=== PATIENT | female | born 1990 | race Caucasian/White ===

== ENCOUNTER 2019-08-16 08:41 | Outpatient (CLI) | payer OTHER, SELFPAY ==
--- NOTE | ~2019-08-16 | US_ITS ---
EXAMINATION: US pelvic complete w TV DATE: 08/16/2019 09:19 INDICATION: Pelvic and perineal pain Comparison:No prior studies for comparison. TECHNIQUE: Multiple transabdominal and endovaginal sonographic images of the pelvis performed. FINDINGS: The uterus measures 9.6 x 4.5 x 6 cm. There are nabothian cysts. The endometrial complex me asures 8 mm. The right ovary measures 4.8 x 2.6 x 2.1 cm and the left ovary measures 2.9 x 1.3 x 2.3 cm. There is a 2.5 cm right ovarian cyst. There is no free fluid in the pelvis. There are no abnormal masses seen on either side. IMPRESSION: 1. 2.5 cm right ovarian cyst. Reviewed, dictated and finalized at location A.
== END 2019-08-16 08:42 | disposition home or self-care (01) ==
PROVIDERS: PCP Family Medicine; Visit Provider Family Medicine
DX: R10.2 Pelvic and perineal pain (principal)
CPT/HCPCS: 76830; 76856

== ENCOUNTER 2019-09-11 11:51 | Outpatient (CLI) | payer OTHER, SELFPAY ==
--- NOTE | ~2019-09-11 | XR_ITS ---
EXAMINATION: XR thoracic spine 3V DATE: 09/11/2019 12:23 INDICATION: Thoracic back pain. TECHNIQUE: 3 views of thoracic spine were obtained. COMPARISON: None. FINDINGS: There is 7 degrees levocurvature of cervicothoracic spine. Vertebral body heights and inter vertebral disc heights are normal. Surgical clips in the right upper quadrant are likely from cholecy stectomy. IMPRESSION: 1. Cervicothoracic levocurvature. Reviewed, dictated and finalized at location A.
--- NOTE | ~2019-09-11 | XR_ITS ---
EXAMINATION: XR lumbar spine 2-3V DATE: 09/11/2019 12:23 INDICATION: Low back pain. TECHNIQUE: 3 views of lumbar spine were obtained. COMPARISON: Lumbar spine radiographs 06/04/2011 FINDINGS: There is 4 degrees dextrocurvature of lumbar spine. Vertebral body heights and intervertebr al disc heights are normal. Surgical clips in the right upper quadrant are likely from cholecystectom y. IMPRESSION: 1. No etiology for the patient's symptoms. Reviewed, dictated and finalized at location A.
== END 2019-09-11 11:52 | disposition home or self-care (01) ==
PROVIDERS: PCP Family Medicine; Visit Provider Family Medicine
DX: M54.5 Low back pain (principal); M54.6 Pain in thoracic spine
CPT/HCPCS: 72072; 72100

== ENCOUNTER 2019-09-13 14:33 | Outpatient (RCR) | payer OTHER, SELFPAY ==
--- NOTE | 2019-09-19 13:24 | PCPTNOTE ---
09/19/19-pt continues to be late for all of her appointments by about 30 min. pt called at approximately 1305 today to say she was running late, but that she was literally pulling into the parking lot at that time. At approximately 1320 pt was finally seen pulling into the parking lot. pt then got out of her car, walked half way to the building, then turned around and got back into her car and called back to cancel. pt stated her prescription was still not ready and she was waiting on that so she wanted to reschedule because she was in too much pain to come without it. -
--- NOTE | 2019-09-20 14:52 | PTOPEVAL ---
Thank you for referring Yovana Berkowitz to [facility]. Please review, sign, date and return this plan of care AMAN. I agree with and certify that the following plan of care is medically necessary. Referring Physician Date Admitting Provider: Attending Provider: Oscar Mejía MD Referring Provider: *PT Outpatient Evaluation Start: 09/13/19 14:35 Freq: Status: Active Protocol: Document 09/13/19 14:35 JTF (Rec: 09/13/19 15:22 JTF [id number]) Therapy Assessment Status Assessment Status Assessment Status Evaluation Evaluation Information Problem Diagnosis low back pain, thoracic back pain Onset 09/11/19 Subjective Information patient reports she has been Query Text:As Reported By Patient/ having pain in the whole Family spine. she reports she has been having increased pain for about 1 week. she reports she has been unable to move or walk without any pain since this past wednesday. she reports her spine was knicked during epidural of the of the her youngest child. she reports no injury recently . she reports she feels she has a knot in her spine. she reports she works in the [employer] at [place]. she reports she has been off work for a week. she reports she has no return to work date yet . she reports she has had an x -ray of the spine. Prior Level of Function Comments Additional Prior Level of Function patient reports pain currently Comments with any activities and all movements she reports prior to last wednesday, no issues Pain Assessment Timing of Pain Assessment Timing of Pain Assessment Assessment Pain Scale Pain Scale Used Numeric (1 - 10) Self Report Pain Assessment Lower Back Reported Pain Level 10 Pain Score Pain Score 10: Self Report Cervical and Lumbar ROM Lumbar ROM Lumbar Flexion Active [place] Query Text:Hands to: Lumbar Extension (0-40) 0 Query Text:Active in Degrees Lumbar Lateral Flexion Right (0-40) 10 Query Text:Active in Degrees Lumbar Lateral Flexion Left (0-40)
--- NOTE | 2019-10-03 17:56 | PCPTNOTE ---
10/03/19- pt was scheduled for a 1600 appointment today and was a no call no show. -.
--- NOTE | 2019-12-05 16:13 | PCPTNOTE ---
12/05/19 - patient has not been to therapy in several months. as of this date, patient will be DC'd from skilled PT services, and all progress towards goals will be taken from patients most recent evaluation/note. BALJINDER
== END 2019-09-29 09:35 | disposition home or self-care (01) ==
LOC: CHSPT 14:33
PROVIDERS: PCP Family Medicine; Visit Provider Family Medicine
DX: M54.5 Low back pain (principal); M54.6 Pain in thoracic spine
CPT/HCPCS: 97012; 97014; 97110; 97140; 97162; G0283

== ENCOUNTER 2019-11-18 07:54 | Outpatient (CLI) | payer OTHER, SELFPAY ==
--- NOTE | ~2019-11-18 | MR_ITS ---
EXAMINATION: MR lumbar spine wo con EXAM DATE: 11/18/2019 08:33 INDICATION: Pain radiating and low back down into right hip and leg with numbness in the thigh and fo ot. States onset since lifting injury in August. TECHNIQUE: Multi-sequential, multiplanar MR images of the lumbar spine were obtained without contrast . Sagittal T1, T2, T2 fat saturation images. Axial T2 weighted images. There is no prior study for comparison. FINDINGS: The vertebral bodies are aligned in the AP dimension. Vertebral body and disc heights are w ell-maintained. There are no suspicious marrow signal abnormalities. Paraspinal soft tissue is unrema rkable. The conus medullaris terminates at the L1/2 level and has normal signal intensity and morphol ogy. Level by level evaluation: T12-L1: Disc does not extend beyond the endplate margin. Facet arthropathy: None. Neural foraminal stenosis: No stenosis. Central canal stenosis: No stenosis. L1-L2: Disc does not extend beyond the endplate margin. Facet arthropathy: None. Neural foraminal stenosis: No stenosis. Central canal stenosis: No stenosis. L2-L3: Disc does not extend beyond the endplate margin. Facet arthropathy: None. Neural foraminal stenosis: No stenosis. Central canal stenosis: No stenosis. L3-L4: Disc does not extend beyond the endplate margin. Facet arthropathy: Mild. Neural foraminal stenosis: No stenosis. Central canal stenosis: No stenosis. L4-L5: There is a mild diffuse disc bulge. Facet arthropathy: Mild. Neural foraminal stenosis: No stenosis. Central canal stenosis: No stenosis. L5-S1: There is a minimal diffuse disc bulge. Facet arthropathy: Minimal. Neural foraminal stenosis: No stenosis. Central canal stenosis: No stenosis. IMPRESSION: 1. Mild lumbar facet arthropathy. No stenosis. Reviewed, dictated and finalized at location A.
== END 2019-11-18 07:55 | disposition home or self-care (01) ==
LOC: CHSIMG 07:55
PROVIDERS: PCP Family Medicine; Visit Provider Family Medicine
DX: M54.5 Low back pain (principal)
CPT/HCPCS: 72148

== ENCOUNTER 2020-02-28 15:05 | Outpatient (CLI) | payer OTHER, SELFPAY ==
[2020-02-28 16:04] LABS: Influenza Control Valid (Valid)
[2020-02-28 16:05] LABS: SARS-CoV-2 Ag Negative (Negative)
== END 2020-02-28 15:06 | disposition home or self-care (01) ==
LOC: CHSLAB 15:06
PROVIDERS: PCP Family Medicine; Visit Provider Family Medicine
DX: R05 Cough (principal); Z20.828 Contact with and (suspected) exposure to other viral communicable diseases
CPT/HCPCS: 87081; 87426; 87804; 87880

== ENCOUNTER 2020-03-22 14:27 | Outpatient (CLI) | payer OTHER, SELFPAY ==
[2020-03-22 14:53] LABS: SARS-CoV-2 Ag Negative (Negative)
== END 2020-03-22 14:28 | disposition home or self-care (01) ==
LOC: CHSLAB 14:30
PROVIDERS: PCP Family Medicine; Visit Provider Family Medicine
DX: J00 Acute nasopharyngitis [common cold] (principal); J06.9 Acute upper respiratory infection, unspecified; Z20.828 Contact with and (suspected) exposure to other viral communicable diseases
CPT/HCPCS: 87426

== ENCOUNTER 2020-05-20 18:30 | Outpatient (CLI) | payer OTHER, SELFPAY ==
[2020-05-20 20:02] LABS: SARS-CoV-2 Ag Negative (Negative)
== END 2020-05-20 18:31 | disposition home or self-care (01) ==
LOC: CHSLAB 18:32
PROVIDERS: PCP Family Medicine; Visit Provider Family Medicine
DX: R11.2 Nausea with vomiting, unspecified (principal); Z20.822 Contact with and (suspected) exposure to COVID-19
CPT/HCPCS: 87426; C9803

== ENCOUNTER 2021-01-30 13:46 | Outpatient (CLI) | payer OTHER, SELFPAY ==
[2021-01-30 15:34] LABS: Influenza A QL RT-PCR Negative (Negative); Influenza B QL RT-PCR Negative (Negative); SARS-CoV-2 RNA PCR Negative (Negative)
== END 2021-01-30 13:47 | disposition home or self-care (01) ==
LOC: CHSLAB 13:50
PROVIDERS: PCP Family Medicine; Visit Provider Family Medicine
DX: J00 Acute nasopharyngitis [common cold] (principal)
CPT/HCPCS: 87502; C9803; U0003; U0005

== ENCOUNTER 2023-02-13 17:03 | Emergency (ER) | payer OTHER, SELFPAY ==
[2023-02-13 17:05] VITALS: BP 127/55; PULSE 106; RESP 20; O2SAT 100
--- NOTE | 2023-02-13 17:14 | ED.DENTAL ---
HPI - Dental/Oral General Chief complaint: Dental/Oral Stated complaint: toothache Source: patient and family Mode of arrival: ambulatory Limitations: no limitations History of Present Illness HPI Narrative: this is a 32-year-old female that presents with dental pain right lower molar with surrounding gum inflammation with some jaw swelling and right submandibular gland tenderness with no shortness of breath no fever chills no nausea vomiting. MD Complaint: tooth pain Teeth map: 1. Dental pain with surrounding gum inflammation Onset (ago): day(s) Severity scale (1-10): 8 Relieving factors: NSAIDs Exacerbating factors: chewing, cold, drinking fluids and swallowing Context: history of dental caries Associated symptoms: gum swelling Treatment prior to arrival: oral analgesic Related Data Allergies Allergy/AdvReac Type Severity Reaction Status Date / Time No Known Allergies Allergy Unverified 10/10/11 22:53 Review of Systems Review of Systems: All systems reviewed & are unremarkable except as noted in HPI and below PMFSH Past Medical History Medical History Patient denies medical problems Exam Const: General: healthy appearing Nutritional Appearance: well nourished Orientation/consciousness: patient oriented x3 Limitations: no limitations HENMT: Head: normal to inspection Other: lower right jaw swelling, with lower right molar dental pain with surrounding gum inflammation Chest: Chest palpation & inspection: normal inspection of the chest Resp: Effort & Inspection: normal respiratory effort Auscultation: clear to auscultation bilaterally Cardio: Rate: regular rate Rhythm: regular rhythm GI: GI Palp: Yes Soft to palpation Skin: General skin exam: normal color Rashes: no rashes Neuro: General: patient oriented x3 and moves all extremities Psych: Mental Status: mental status grossly normal Affect: normal affect Course Course Emergency Course: patient with dental rates her pain about 8/10 has tried [id number] ibuprofen with minimal relief, patient received a dose of 60mg IM Toradol and a dose of p.o. amoxicillin. Critical Care Time Critical Care Time Critical Care Time: No Discharge Plan Discharge Clinical Impression: Dental abscess Patient Disposition: Home, Self-Care Condition: Stable Instructions: Antibiotic Form, Dental Abscess (ED) Additional Instructions: advised take medication as prescribed and follow-up with primary care physician /Dentist if symptoms persist or worsen. Prescriptions: New naproxen 500 mg tablet 500 mg PO BID PRN (Reason: pain) Qty: 14 0RF amoxicillin 500 mg tablet 500 mg PO TID Qty: 30 0RF Follow-up/Referrals: Oscar Mejía MD [Primary Care Provider] - Stand Alone Forms: Work/School Release IP Time of Disposition: 17:20
[2023-02-13 17:19] VITALS: TEMP 36.4
[2023-02-13] MEDS: KETOROLAC (*BKC) 60 MG/2 ML VIAL IM (17:25)
[2023-02-13] MEDS: AMOXICILLIN 500 MG CAPSULE PO (17:26)
--- NOTE | 2023-02-13 17:37 | PC.NURSE ---
pt discharged prior to pain med reeval per request to be able to get to pharmacy before closing
== END 2023-02-13 17:32 | disposition home or self-care (01) ==
PROVIDERS: Emergency Provider Emergency Medicine; PCP Family Medicine
DX: K04.7 Periapical abscess without sinus (principal)
CPT/HCPCS: 96372; 99283; A9270; J1885

== ENCOUNTER 2023-07-08 17:45 | Emergency (ER) | payer OTHER, SELFPAY ==
[2023-07-08] VITALS (11 sets, daily range): BP systolic 95–115; BP diastolic 42–64; PULSE 113–131; RESP 18–26; O2SAT 94–100
--- NOTE | ~2023-07-08 | XR_ITS ---
EXAMINATION: XR chest 1V portable Exam Date/Time: 07/08/2023 19:20 CDT HISTORY: Shortness of breath, hx asthma, LT sided chest pain Comparison: 03/11/2017. RESULT: Lines, tubes, and devices: None. Lungs and pleura: Clear. Cardiomediastinal silhouette: Stable. Other: No acute osseous or upper abdominal finding. IMPRESSION: No acute cardiopulmonary process. Reviewed, dictated and finalized at location K.
[2023-07-08] MEDS: IPRATROPIUM 0.5 MG/ALBUTEROL SULFATE 2.5 MG AMPUL.NEB 3 ML INHALATION (18:12)
[2023-07-08] MEDS: MAGNESIUM SULF 2 GM/WATER 50ML 2 GM/50 ML BAG IVPB (18:47)
[2023-07-08] MEDS: methylPREDNISolone SOD SUCC 125 MG VIAL IV PUSH (18:47)
[2023-07-08 18:51] LABS: Basophils Absolute Auto 0.07 K/mm3 (0.00-0.10); Basophils Percent Auto 0.8 % (0.0-1.0); Eosinophils Absolute Auto 0.74 K/mm3 (0.02-0.50); Eosinophils Percent Auto 8.3 % (1.0-6.0); Hematocrit 37.1 % (35.0-49.0); Hemoglobin 12.2 g/dL (12.0-15.0); Immature Granulocyte Absolute 0.03 K/mm3 (0.00-0.00); Immature Granulocyte Percent A 0.3 % (0.0-0.0); Lymphocytes Absolute Auto 1.33 K/mm3 (1.10-4.50); Mean Corpuscular HGB Conc 32.9 g/dL (32-36); Mean Corpuscular Hemoglobin 28.6 pg (27.0-31.0); Mean Corpuscular Volume 87.1 fL (78.0-102.0); Mean Platelet Volume 8.9 fl (9.2-11.8); Monocytes Absolute Auto 0.56 K/mm3 (0.10-0.90); Monocytes Percent Auto 6.3 % (2.0-11.0); Neutrophils Absolute Auto 6.14 K/mm3 (1.70-7.20); Neutrophils Percent Auto 69.3 % (50.0-70.0); Platelet Count Result 348 K/mm3 (150-420); Red Blood Count 4.26 M/mm3 (4.20-5.40); Red Cell Distribution Width 13.1 % (11.6-14.4); White Blood Count 8.9 K/mm3 (4.8-10.8)
[2023-07-08 19:07] LABS: Alanine Aminotransferase 21 U/L (14-59); Albumin Level 3.5 g/dL (3.4-5.0); Alkaline Phosphatase 75 U/L (46-116); Anion Gap 10 mmol/L (4-12); Aspartate Amino Transferase 12 U/L (15-37); Bilirubin,Total 0.5 mg/dL (0.00-1.00); Blood Urea Nitrogen 5 mg/dL (7-18); Calcium 8.8 mg/dL (8.5-10.1); Carbon Dioxide 28 mmol/L (21-32); Chloride 100 mmol/L (98-108); Estimated Glomerular Filt Rate > 60; Glucose 105 mg/dL (70-99); Osmolality Calculated 283 mOsm/kg (285-295); Potassium 3.1 mmol/L (3.5-5.1); Sodium 138 mmol/L (136-145)
--- NOTE | 2023-07-08 19:25 | PC.NURSE ---
report to felicia dale all questions answered.
--- NOTE | 2023-07-08 19:25 | PC.NURSE ---
PT IS SITTING UP ON STRETCHER TEXTING ON CELL PHONE AND WATCHING TV. PT REQUESTED JUICE AND CRACKERS. PT REPORTS BREATHING IS IMPROVING. PT IS AWAITING CXR AT THIS TIME. NAD NOTED. PT IS ABLE TO SPEAK IN COMPLETE SENTENCES WITHOUT DIFFICULTY. WILL CONTINUE TO MONITOR. IV MEDICATION IS INFUSING ORDERED WITHOUT DIFFICULTY.
[2023-07-08 19:27] LABS: Influenza A QL RT-PCR Negative (Negative); Influenza B QL RT-PCR Negative (Negative); RSV RNA, RT-PCR Negative (Negative); SARS-CoV-2 RNA PCR Negative (Negative)
[2023-07-08] MEDS: POTASSIUM BICARBONATE 25 MEQ TABEF 50 MEQ PO (19:43)
--- NOTE | 2023-07-08 19:55 | ED.SOB ---
HPI - SOB/Dyspnea General Chief Complaint: Shortness of Breath/Dyspnea Stated Complaint: sob; wheezing Time Seen by Provider: 07/08/23 18:34 Source: patient and family Mode of arrival: ambulatory Limitations: no limitations History of Present Illness HPI Narrative: this is 33-year-old female with a history of asthma presents with shortness of breath and audible wheezing patient is afebrile satting at 97% on room air there is no chest pain no pressure in the chest no nausea vomiting no abdominal pain no diarrhea constipation. MD elicited complaint: shortness of breath, cough and asthma attack Pertinent past history: asthma Onset (ago): day(s) Known history of: asthma Treatment prior to arrival: none Related Data Allergies Allergy/AdvReac Type Severity Reaction Status Date / Time No Known Allergies Allergy Verified 07/08/23 18:43 Review of Systems Review of Systems: All systems reviewed & are unremarkable except as noted in HPI and below PMFSH Past Medical History Medical History Asthma Patient denies medical problems Exam Const: General: healthy appearing Nutritional Appearance: well nourished Orientation/consciousness: patient oriented x3 Limitations: no limitations HENMT: Head: normal to inspection Eyes: Conjunctivae: conjunctivae normal Pupils: Equal, round and reactive pupils present Neck: Neck: normal visual inspection, no lymphadenopathy and no meningeal signs Chest: Chest palpation & inspection: normal inspection of the chest Resp: Effort & Inspection: normal respiratory effort Auscultation: wheezes Cardio: Rate: regular rate Rhythm: regular rhythm GI: GI Palp: Yes Soft to palpation : General: Yes bladder normal to palpation Course Course Emergency Course: patient received DuoNebs as well as 2 mg IV magnesium as well as Solu-Medrol patient resting comfortably O2 sats 97% on room air chest x-ray shows no acute abnormality and COVID influenza RSV are negative as well as blood work is negative. Vital Signs Vital signs: Vital Signs Oxygen Delivery Room Air 07/08/23 17:45 Pulse Rate 131 H 07/08/23 18:33 Respiratory Rate 22 H 07/08/23 18:33 Pulse Oximetry 97 07/08/23 18:33 Oxygen Delivery Room Air 07/08/23 17:45 Oxygen Flow Rate 15 07/08/23 18:13 MDM - SOB/Dyspnea Lab Data 07/08/23 18:47 07/08/23 18:47 Labs: Lab Results 07/08/23 Range/Units 18:47 WBC 8.9 (4.8-10.8) K/mm3 RBC 4.26 (4.20-5.40) M/mm3 Hgb 12.2 (12.0-15.0) g/dL Hct 37.1 (35.0-49.0) % MCV 87.1 (78.0-102.0) fL MCH 28.6 (27.0-31.0) pg MCHC 32.9 (32-36) g/dL RDW 13.1 (11.6-14.4) % Plt Count 348 (150-420) K/mm3 MPV 8.9 L (9.2-11.8) fl Immature Gran % (Auto) 0.3 H (0.0-0.0) % Neut % (Auto) 69.3 (50.0-70.0) % Lymph % (Auto) 15.0 L (18.0-42.0) % [place] % (Auto) 6.3 (2.0-11.0) % Eos % (Auto) 8.3 H (1.0-6.0) % Baso % (Auto) 0.8 (0.0-1.0) % Lymph # (Auto) 1.33 (1.10-4.50) K/mm3 [place] # (Auto) 0.56 (0.10-0.90) K/mm3 Eos # (Auto) 0.74 H (0.02-0.50) K/mm3 Baso # (Auto) 0.07 (0.00-0.10) K/mm3 Abs Immat Gran (auto) 0.03 H (0.00-0.00) K/mm3 Absolute Neuts (auto) 6.14 (1.70-7.20) K/mm3 Absolute Nucleated RBC 0.00 (0.00-0.00) K/mm3 Nucleated RBC % 0.0 (0-0.0) % Sodium 138 (136-145) mmol/L Potassium 3.1 L (3.5-5.1) mmol/L Chloride 100 (98-108) mmol/L Carbon Dioxide 28 (21-32) mmol/L Anion Gap 10 (4-12) mmol/L BUN 5 L (7-18) mg/dL Creatinine 0.61 (0.55-1.02) mg/dL Estim Creat Clear Calc Not Reportable Estimated GFR > 60 (59 - ) Glucose 105 H (70-99) mg/dL Calculated Osmolality 283 L (285-295) mOsm/kg Calcium 8.8 (8.5-10.1) mg/dL Total Bilirubin 0.5 (0.00-1.00) mg/dL AST 12 L (15-37) U/L ALT 21 (14-59) U/L Alkaline Phosphatase 75 (46-116) U/L Total Protein 7.0 (6.4-8.2) g/dL Albumin 3.5 (3.4
[2023-07-08] MEDS: AZITHROMYCIN 250 MG TABLET 500 MG PO (20:11)
--- NOTE | 2023-07-08 20:26 | PC.NURSE ---
PT'S MOTHER HAS ARRIVED AT BEDSIDE. PT IS TALKING TO MOTHER WITHOUT DISTRESS. PT CONTINUES TO HAVE WHEEZES NOTED THROUGHOUT LUNG DOSHI, HOWEVER REPORTS SHE IS FEELING MUCH BETTER. ERP IS AWARE. WILL CONTINUE TO MONITOR.
== END 2023-07-08 20:37 | disposition home or self-care (01) ==
PROVIDERS: Emergency Provider Emergency Medicine; PCP Family Medicine
DX: J45.909 Unspecified asthma, uncomplicated (principal); Z79.51 Long term (current) use of inhaled steroids; Z20.822 Contact with and (suspected) exposure to COVID-19
CPT/HCPCS: 36415; 71045; 80053; 85025; 87637; 96365; 96366; 96375; 99284; A9270; J2930; J3475